=== PATIENT | male | born 1965 | race Caucasian/White ===

== ENCOUNTER → 2023-10-16 06:23 | Day surgery (SDC) | payer BC, SELFPAY | LOC: GI 06:23 | PROVIDERS: ATTENDING PHYSICIAN Internal Medicine Gastroenterology | DX: Z12.11 Encounter for screening for malignant neoplasm of colon (principal); Z86.010 Personal history of colon polyps; K64.0 First degree hemorrhoids; K63.5 Polyp of colon; D12.8 Benign neoplasm of rectum | CPT/HCPCS: 45380; 88305 ==

== ENCOUNTER 2024-09-10 16:25 | Emergency (ER) | payer BC, SELFPAY ==
[2024-09-10 16:25] VITALS: BMI 30.1
[2024-09-10 16:33] VITALS: BP 135/98
[2024-09-10 17:18] LABS: % Basophils 0.4 % (0-2); % Eosinophils 1.7 % (0-6); % Immature Granulocytes 0.2 % (0-0.5); % Lymphocytes 24.1 % (20.5-51.1); % Monocytes 8.3 % (1.7-9.3); % Neutrophils 65.3 % (42.2-75.2); Absolute Eosinophils 0.1 10^3/uL (0-0.7); Absolute Monocytes 0.7 10^3/uL (0.1-0.6); Absolute Neutrophils 5.3 10^3/uL (1.4-6.5); Hemoglobin 16.2 g/dL (13.0-18.0); Mean Corp Hgb Conc. 35.2 g/dL (33.0-37.0); Mean Corpuscular Hgb 28.7 pg (27.0-31.0); Mean Corpuscular Volume 81.6 fL (80.0-94.0); Mean Platelet Volume 9.3 fL (7.4-10.4); Nucleated Red Blood Cells % 0 % (-); Platelet Count 234 10^3/uL (130-400); Red Blood Cell Count 5.64 10^6/uL (4.70-6.10); White Blood Cell Count 8.1 10^3/uL (4.8-10.8)
[2024-09-10 17:43] LABS: ALT (SGPT) 23 U/L (0-50); AST (SGOT) 19 U/L (17-59); Albumin 4.6 g/dl (3.5-5.0); Alkaline Phosphatase 69 U/L (38-126); Blood Urea Nitrogen 21 mg/dl (9-20); Calcium 9.8 mg/dl (8.4-10.2); Carbon Dioxide 25 mmol/L (22-30); Chloride 102 mmol/L (98-107); Glucose 117 mg/dl (70-99); Sodium 136 mmol/L (135-145); Total Bilirubin 0.6 mg/dl (0.2-1.3); Total Protein 7.2 g/dl (6.3-8.2); eGFR > 60.00
[2024-09-10 19:20] VITALS: BP 140/108
[2024-09-10 20:00] VITALS: BP 140/98
--- NOTE | 2024-09-10 21:01 | ED.GENMED ---
History of Present Illness
General
Chief Complaint: Blood Pressure Problem
Source: patient and spouse
Exam Limitations: none
Time Seen by Provider: 09/10/24 19:30
Nursing documentation reviewed up to this point in time: agreed with
History of Present Illness
History of Present Illness:
59-year-old male presenting to the emergency department today with concerns of elevated blood pressure. Had a meniscal surgery 2 days ago had blood pressure that was slightly elevated to 150s over 100s prior to that has been taking at home over the
past few days which have been in the 140s to 150s over the low 100s. Denies any chest pain had a very mild headache earlier today has been taking Motrin for discomfort. No history of high blood pressure smoking drinking or drug use
Review of Systems
Review of Systems
Allergies reviewed?: Yes
All Other Systems: ROS reviewed and negative except as documented in HPI and ROS
Phy Exam
Physical Exam
Physical Exam:
GENERAL: Alert , in no apparent distress
EYE: pupils equal and reactive
NECK: Supple, no significant adenopathy.
ENT: o/p clr, mmm.
CARDIAC: Regular rate and rhythm .
LUNGS: Clear breath sounds bilaterally, no acute respiratory distress, no wheezes/rales/rhonchi
ABDOMEN: Soft, without focal tenderness, no r/g, no cvat
NEUROLOGICAL: Alert and oriented, no focal neuro deficits
SKIN: Warm and dry, skin intact.
MUSCULOSKELETAL: No edema, well perfused.
PSYCH: Normal and appropriate interaction.
Course
Orders/Labs/Results
Orders:
Orders
09/10/24 16:38
Electrocardiogram (*1) Urgent
Reason for Study: Hypertension, Benign
EKG- Treatment ONCE
09/10/24 16:53
CMP [Comprehensive Metabolic Panel] Urgent
Complete Blood Count/With Diff Urgent
Abnormal Lab Results
09/10/24
16:53
Absolute Monos (auto) 0.7 H 10^3/uL
(0.1-0.6)
BUN 21 H mg/dl
(9-20)
Glucose 117 H mg/dl
(70-99)
09/10/24 16:53
09/10/24 16:53
Vital Signs
Initial and Last Documented VS:
Initial Vital Signs
Temp Pulse Resp BP Pulse Ox
97.9 F 90 16 135/98 97
09/10/24 16:33 09/10/24 16:33 09/10/24 16:33 09/10/24 16:33 09/10/24 16:33
Last Documented Vital Signs
Temp Pulse Resp BP Pulse Ox
97.9 F 64 16 140/98 96
09/10/24 16:33 09/10/24 20:45 09/10/24 20:45 09/10/24 20:00 09/10/24 20:30
MDM/Problems Addressed
MDM/Problems Addressed:
59-year-old male presenting to the emergency department today for concerns of elevated blood pressure over the past few days. Here blood pressure initially 130s over 90s and then 140/98. Labs without emergent findings patient generally
well-appearing no symptoms consistent with hypertensive emergency. He was advised to monitor this closely and follow-up closely with the primary care doctor otherwise no additional blood initiated at this time as pressure is very minimally elevated.
*Critical Care Note
Total Time (30-74mins, 75-104mins- exclusive of procedures): Not Applicable
ED Attending Note
-
Portions of this chart may have been created with voice recognition software.� Occasional wrong word or��sound alike� substitutions may have occurred due to the inherent limitations of voice recognition software.
Discharge Plan
Departure
Patient Disposition: Home (Routine Discharge)
Date of Disposition: 09/10/24
Time of Disposition: 21:01
Patient with high blood pressure during this ER visit?: Yes
Condition: Good
Covid-19: Not Applicable
Discharge Problem:
High blood pressure
Instructions: BLOOD PRESSURE
Prescriptions:
No Action
simvastatin 10 mg Tablet
10 mg PO DAILY
Referrals:
Garrick Harding CRNP [Family Provider] -
Activity Restrictions/Additional Instructions:
You came to the emergency department today with concerns of high blood pressure. Here you have a reassuring assessment. Please keep a log of this and follow-up with your primary care doctor in 1 week for reassessment. Return for any worsening,
new or concerning symptoms.
Interventions
Interventions:
*Risk Screen - Suicide Last Done: 09/10/24 16:33
*General Assessment Last Done: 09/10/24 16:33
*Neglect/Abuse Screening Last Done: 09/10/24 16:33
*ED COVID-19 Vaccine History Last Done: 09/10/24 16:33
*Nursing Disposition Last Done: 09/10/24 21:18
ED- Cardiac Assessment Last Done: 09/10/24 19:22
ED- Neurological Assessment Last Done: 09/10/24 19:22
ED- Pulmonary Assessment Last Done: 09/10/24 19:22
Discharge Date and Time
Discharge Date/Time: 09/10/24 21:19
Print Language: [id number]
== END 2024-09-10 21:19 | disposition home or self-care (01) ==
LOC: EMR 16:25
PROVIDERS: EMERGENCY PHYSICIAN Emergency Medicine; FAMILY PHYSICIAN Nurse Practitioner Adult Health
DX: I16.1 Hypertensive emergency (principal); R51.9 Headache, unspecified; E78.5 Hyperlipidemia, unspecified; Z98.890 Other specified postprocedural states
CPT/HCPCS: 99283; 80053; 85025; 93005